=== PATIENT | female | born 1985 ===

== ENCOUNTER 2017-02-15 17:18 | Emergency (ER) | payer OTHER ==
[2017-02-15 17:19] VITALS: BMI 36.6
[2017-02-15 17:31] VITALS: TEMP 97.7
--- NOTE | 2017-02-15 17:50 | ED PDOC ---
Arrival/HPI - General Time Seen by Provider: 02/15/17 17:39 - History of Present Illness Narrative History of Present Illness (Text): 02/15/17 17:47 31-year-old female with a history of asthma and bronchitis, presents emergency department with 3 days' duration wheezing, cough with sputum, and pleuritic chest discomfort. Patient denies any dyspnea on exertion, shortness of breath, fevers or chills, or exertional chest pain. No relieving or exacerbating factors , and no other complaints. Past Medical History - Provider Review Nursing Documentation Reviewed: Yes - Tetanus Immunization Tetanus Immunization: Unknown - Cardiac Hx Cardiac Disorders: No - Pulmonary Hx Respiratory Disorders: Yes Hx Asthma: Yes - Neurological Hx Neurological Disorder: No - HEENT Hx HEENT Disorder: No - Renal Hx Renal Disorder: No - Endocrine/Metabolic Hx Endocrine Disorders: No - Hematological/Oncological Hx Blood Disorders: Yes Hx Anemia: Yes - Integumentary Hx Dermatological Disorder: No - Musculoskeletal/Rheumatological Hx Back Pain: Yes Hx Herniated Disk: Yes - Gastrointestinal Hx Gastrointestinal Disorders: No - Genitourinary/Gynecological Hx Genitourinary Disorders: No - Psychiatric Hx Psychophysiologic Disorder: No Hx Substance Use: No - Surgical History Hx Section: Yes - Anesthesia Hx Anesthesia: Yes Hx Anesthesia Reactions: No Hx Malignant Hyperthermia: No Family/Social History Family/Social History: Unknown Family HX Smoking Status: Light Smoker < 10 Cigarettes Daily Hx Alcohol Use: No Hx Substance Use: No Allergies/Home Meds Allergies/Adverse Reactions: Allergies ciprofloxacin [From Cipro] Allergy (Verified 12/20/16 14:00) SWELLING ciprofloxacin HCl [From Cipro] Allergy (Verified 12/20/16 14:00) SWELLING Physical Exam - Physical Exam Narrative Physical Exam (Text): - Review of Systems Constitutional: Normal. absent: Fatigue, Weight Change, Fevers Eyes: Normal ENT: denies sore throat, denies tristhmus Respiratory: Cough, Sputum. absent: SOB Cardiovascular: absent: Chest Pain, Palpitations, Syncope Gastrointestinal: Normal. absent: Abdominal Pain, Diarrhea, Nausea, Vomiting Genitourinary: Normal. absent: Dysuria, Frequency, Hematuria, vaginal bleeding Musculoskeletal: Normal. absent: Arthralgias, Back Pain, Neck Pain Skin: no rashes, no erythema Neurological: absent: Focal Weakness Endocrine: Normal Hemo/Lymphatic: Normal Psychiatric: No suicidal or homicidal ideations Physical exam Patient appears age appropriate in no distress, speaking full sentences without difficulty - Systems Exam Head: Present: Atraumatic, Normocephalic Pupils: Present: PERRL Extroacular Muscles: Present: EOMI Conjunctiva: Present: Normal Mouth: Present: Moist Mucous Membranes Neck: Present: Normal Range of Motion. No: MIDLINE TENDERNESS, Paraspinal Tenderness Respiratory/Chest: Present: Bilateral expiratory wheezing, Good Air Exchange. No: Respiratory Distress, Accessory Muscle Use, Tachypneic Cardiovascular: Present: Regular Rate and Rhythm, Normal S1, S2, Peripheal Pulses Present. No: Murmurs Abdomen: Present: Normal Bowel Sounds. No: Tenderness, Distention, Peritoneal Signs, Rebound, Guarding Back: Present: Normal Inspection. No: Midline Tenderness, Paraspinal Tenderness Upper Extremity: Present: Normal Inspection. No: Cyanosis, Edema Lower Extremity: Present: Normal Inspection. No: Edema Neurological: Present: GCS=15, Speech Normal, cranial nerves II through XII fully intact with no cerebellar abnormality, neurosensory fully intact. No focal neurological deficits. Skin: Present: Warm, Dry, Normal Color. No: Rashes Lymphatic: Present: OX3, NI, NC Psychiatric: Present: Alert, Oriented x 3, Normal Insight, Normal Concentration Vital Signs Reviewed: Yes Vital Signs Temp Pulse Resp BP Pulse Ox 02/15/17 18:34 89 18 110/69 97 02/15/17 17:30 97.7 F 77 18 108/73 100 Temperature: Afebrile Blood Pressure: Normal Pulse: Regular Respiratory Rate: Normal Appearance: Positive for: Well-Appearing Pain Distress: None Mental Status: Positive for: Alert and Oriented X 3 - Systems Exam Mouth: No: Trismus Pharnyx: No: ERYTHEMA, EXUDATE, TONSILS ENLARGED Medical Decision Making ED Course and Treatment: 02/15/17 17:50 31-year-old female with pleuritic chest pain, URI symptoms, and wheezing on examination. Differential diagnosis includes not limited to: Pneumonia versus asthma exacerbation versus bronchitis Diagnosis of PE considered, patient is PERC negative EKG interpreted by ER physician. Normal sinus. No ST-segment elevations. Normal intervals. 02/15/17 19:26 On reevaluation patient's lungs clear to auscultation bilaterally, patient states that she feels much better and is asking to be discharged home. States that she has a nebulizer machine at home, however she has not used it, and states that she will use it when she gets home after being discharged. States that she has refills. Patient states that she does not have any chest pain, shortness of breath, dyspnea on exertion. Pt states she understands to return to the ER right away for new or worsening symptoms or for inability to f/u with PMD or specialist as instructed. Patient states that she fully agrees with and understands discharge instructions. States that she agrees with the plan and disposition. Verbalized and repeated discharge instructions and plan. I have given the patient opportunity to ask any additional questions. - Medication Orders Current Medication Orders: Discontinued Medications Albuterol/Ipratropium (Duoneb 3 Mg/0.5 Mg (3 Ml) Ud) 3 ml IH Q15M VALERIE Stop: 02/15/17 18:16 Last Admin: 02/15/17 18:57 Dose: 3 ML Azithromycin (Zithromax) 500 mg PO STAT STA PRN Reason: Protocol Stop: 02/15/17 17:40 Last Admin: 02/15/17 18:03 Dose: 500 MG Prednisone (Prednisone Tab) 60 mg PO STAT ONE Stop: 02/15/17 17:40 Last Admin: 02/15/17 18:03 Dose: 60 MG Disposition/Present on Arrival - Present on Arrival Any Indicators Present on Arrival: No History of DVT/PE: No History of Uncontrolled Diabetes: No Urinary Catheter: No History Surgical Site Infection Following: None - Disposition Have Diagnosis and Disposition been Completed?: Yes Diagnosis: Wheezing Disposition: HOME/ ROUTINE Disposition Time: 19:27 Patient Plan: Discharge Condition: GOOD Discharge Instructions (ExitCare): Wheezing (ED) Additional Instructions: PLEASE RETURN TO THE EMERGENCY DEPARTMENT FOR NEW OR WORSENING SYMPTOMS. RETURN RIGHT AWAY IF YOU CANNOT FOLLOW UP WITH YOUR PRIMARY CARE DOCTOR, CLINIC, OR SPECIALIST IN 1-2 DAYS. Prescriptions: Azithromycin [Zithromax] 250 mg PO DAILY #4 tab predniSONE [predniSONE Tab] 60 mg PO DAILY #12 tab Referrals: Pratik Chin, [Primary Care Provider] - Follow up with primary Alisha Feng MD [Staff Provider] - [place] up with primary [facility] [place] - Follow up with primary
[2017-02-15] MEDS: Albuterol-Ipratrop 3 mg / 0.5 (3 ml) UD IH SCH ×3 (18:03→18:57)
[2017-02-15 18:35] VITALS: BP 110/69
[2017-02-15 19:34] VITALS: PULSE 84; RESP 16; O2SAT 98
--- NOTE | 2017-02-16 12:07 | CARD ---
APPROVED REPORT EKG Measurement Heart [id number] <Conclusion> Normal sinus rhythm Normal ECG
== END 2017-02-15 19:34 | disposition home or self-care (01) ==
LOC: ED 17:18
DX: R06.2 Wheezing (principal)